=== PATIENT | female | born 1990 | race Caucasian/White ===

== ENCOUNTER 2018-03-08 18:31 | Emergency (ER) | payer MEDICAID ==
[~2018-03-08] VITALS: Ht 170.2 cm; Wt 81.8 kg
[2018-03-08 18:36] VITALS: BP 144/78
[2018-03-08] MEDS ORDERED: proparacaine 0.5% ophthalmic drops 15ml EACHEYE ONE (19:35)
[2018-03-08] MEDS: ciprofloxacin 0.3% 2.5ml ophthalmic solution EACHEYE SCH ×2 (20:11→20:17)
== END 2018-03-08 20:20 | disposition home or self-care (01) ==
LOC: ER 18:31
DX: H20.9 Unspecified iridocyclitis (principal)
CPT/HCPCS: 99282

== ENCOUNTER 2021-11-25 16:48 | Emergency (ER) | payer MEDICAID ==
[~2021-11-25] VITALS: Ht 167.6 cm; Wt 81.0 kg
[2021-11-25 18:23] VITALS: BP 127/80
[2021-11-25] MEDS ORDERED: TOBR5DRO2 LEFTEYE (19:49)
== END 2021-11-25 19:56 | disposition home or self-care (01) ==
LOC: ER 16:49
DX: H01.004 Unspecified blepharitis left upper eyelid (principal); J32.9 Chronic sinusitis, unspecified; Z79.2 Long term (current) use of antibiotics
CPT/HCPCS: 99283

== ENCOUNTER 2021-12-29 19:34 | Emergency (ER) | payer MEDICAID ==
[~2021-12-29] VITALS: Ht 167.6 cm; Wt 84.1 kg
[~2021-12-29 19:34] MED LIST: TOBR5DRO2 LEFTEYE
[2021-12-29 20:00] VITALS: BP 123/81
--- NOTE | 2021-12-29 20:11 | NUR ---
ATTEMPTED TO REWRAP AND OUTLINE DRAINAGE TO PATIENTS WOUND . SHE IMMEADIATETLY STATED TO CRY AFTER LAUGHING AND HAVING SMALL TALK WITH HER HUSBNAD THE ENTIRE TRIAGE EXPLAINED TO THE PATIENT THAT A BASELINBE ASSSESSMENT NEEDED TO BE DONE TO DOCUMENT THE DRAINAGE FROM HER WOUND AND THAT BARLEY ANY PRESSURE , LESS PRESSURE THAN WRAPING WITH GUAZE, BY EMT , WOULD BE APPLIED TO THE GUAZE , INTIALLY WHEN PATIENT ARRIVED AND NEEDED THE WOUND WRAPPED , SHE DID NOT CRY OR GUARD JUST STATED IT HURT WITH INTIAL WRAPPING , SO THIS RECORDER WAS CONFUSED ON THE SUDDEN AMOUNT OF EMOTION EXHIBITED BY THIS PATIENT AFTER BEIGN TOLD SHE WILL HAVE TO WAIT A BIT TO BE SEEN WHEN IT CAME TO HER LEVEL OF COPING AND TOLERANCE .
[2021-12-29] MEDS ORDERED: AMOX-117 PO (21:14)
[2021-12-29] MEDS ORDERED: IBUP-1986 PO (21:15)
[2021-12-29] MEDS ORDERED: HYDROcodone/acetaminophen 10/325mg tab PO ONE (21:20)
[2021-12-29] MEDS ORDERED: LIDOcaine 1% W/epiNEPHrine 1:200,000 10ml vial IJ ONE (21:20)
[2021-12-29] MEDS ORDERED: TETanus/Pertussis (Acell)/Diphther VAC/PF (Tdap-Adult) 0.5ml syringe IMVAC ONE (21:20)
--- NOTE | 2021-12-29 21:26 | NUR ---
Spoke with Denisse at [facility] to report dogbite. Per Denisse officer will be notified.
[2021-12-29] MEDS ORDERED: LIDOcaine 1% w/EPI 1:100,000 30ml vial (MDV) IJ ONE (21:30)
[2021-12-29] MEDS ORDERED: amox tr/potassium clavulanate 875/125mg TAB PO ONE (22:15)
[2021-12-29] MEDS ORDERED: bacitracin 15gm ointment TP ONE (22:15)
--- NOTE | 2021-12-29 22:40 | NUR ---
po med given topical applied dressing applied
== END 2021-12-29 22:41 | disposition home or self-care (01) ==
LOC: ER 19:35
DX: S81.812A Laceration without foreign body, left lower leg, initial encounter (principal); Z79.2 Long term (current) use of antibiotics; Z79.899 Other long term (current) drug therapy; W54.0XXA Bitten by dog, initial encounter; Y93.89 Activity, other specified; Y92.89 Other specified places as the place of occurrence of the external cause; Y99.8 Other external cause status
CPT/HCPCS: 12034; 73590; 90471; 90715; 99284; A6449

== ENCOUNTER 2022-01-12 13:48 | Emergency (ER) | payer MEDICAID ==
[~2022-01-12] VITALS: Ht 167.6 cm; Wt 84.0 kg
[~2022-01-12 13:48] MED LIST changes: +IBUP-1986 PO
[2022-01-12 14:11] VITALS: BP 145/88
== END 2022-01-12 16:30 | disposition home or self-care (01) ==
LOC: ER 13:48
DX: S81.852D Open bite, left lower leg, subsequent encounter (principal); Z48.00 Encounter for change or removal of nonsurgical wound dressing; W54.0XXD Bitten by dog, subsequent encounter
CPT/HCPCS: 99281